=== PATIENT | male | born 1980 | race Caucasian/White ===

== ENCOUNTER 2021-09-26 08:11 | Emergency (ER) | payer OTHER, SELFPAY ==
--- NOTE | ~2021-09-26 | XR_ITS ---
XR shoulder RT min 2V 09/26/2021 08:47 Indication: Right shoulder pain Procedure: 4 views right shoulder Comparison: No prior studies for comparison. Findings: There is a nondisplaced fracture body of the scapula. The acromioclavicular and glenohumera l joints are in anatomic alignment. Proximal humerus is unremarkable. Impression: 1: Nondisplaced right scapular fracture. Reviewed, dictated and finalized at location A. Impression: 1: Nondisplaced right scapular fracture.
[2021-09-26 08:26] VITALS: BP 125/73; PULSE 58; RESP 20; TEMP 36.6; O2SAT 100
--- NOTE | 2021-09-26 09:12 | ED.GENADULT ---
HPI - General Adult General Chief complaint: Extremity Injury, Upper Stated complaint: Injured right shoulder Source: patient Mode of arrival: ambulatory Limitations: no limitations History of Present Illness HPI narrative: Patient presents for evaluation of right shoulder/scapula pain since last night around 1800. He indicates he was wrestling with a friend at which time he was injured. He had his right arm extended with his right hand on his friend's waist. His friend pivoted backward and he felt a pop in his right shoulder. He has noted persistent pain since that time. At rest he has very minimal pain, but when he flexes at the hips or moves his right shoulder he experiences 8 out of 10 pain in the right shoulder/scapula. Pain radiates down through the midshaft of the right humerus. No paresthesias. He is right-hand dominant. He took a dose of aleve last night which seemed to help. She denies any shortness of breath. No additional complaints or concerns. Related Data Allergies Allergy/AdvReac Type Severity Reaction Status Date / Time No Known Allergies Allergy Verified 09/26/21 08:37 Review of Systems Review of Systems: CONSTITUTIONAL: Denies fever, chills, or sweats. EYES: Denies visual changes, redness, or discharge. ENT: Denies rhinorrhea, congestion, sore throat, or otalgia. CARDIOVASCULAR: Denies chest pain, palpitations, or edema. RESPIRATORY: Denies cough or dyspnea. GASTROINTESTINAL: Denies abdominal pain, nausea, vomiting, or diarrhea. GENITOURINARY: Denies dysuria or hematuria. SKIN: Denies rash or itching. MUSCULOSKELETAL: Reports pain in the right shoulder/scapula NEUROLOGIC: Denies headache, numbness, dizziness, or weakness. PSYCHIATRIC: Denies anxiety or depression. [facility] Past Medical History Medical History (Updated 09/26/21 @ 09:33 by Ho Caballero, GE, STEFFI) No pertinent past medical history Surgical History Surgical History No pertinent past surgical history Family History Family History Mother Family history non-contributory Social History Social History Smoking status: Current some day smoker Alcohol intake: current Alcohol use details: Rarely Substance use: never Living arrangements: alone Gender identity (if verbalized by the patient): Male Spiritual care concerns: No Exam Narrative: GENERAL: Well-appearing, well-nourished, and in no acute distress. HEAD: Normocephalic, atraumatic. EYES: PERRLA and EOMI. ENT: Nares clear, no rhinorrhea or epistaxis. Mucous membranes moist. Oropharynx without tonsillar hypertrophy exudate or other lesions. Bilateral TMs pearly marsh nonbulging NECK: Supple. No adenopathy or masses. No carotid bruits or JVD CHEST: Clear to auscultation. No respiratory distress. No wheezes rales or rhonchi HEART: Regular rate and rhythm. No murmur heard. Normal peripheral pulses. ABDOMEN: Soft, nontender, nondistended, normal active bowel sounds. EXTREMITIES: No tenderness in the right shoulder. There is tenderness over the right scapula. Decreased active and passive range of motion of the right shoulder secondary to pain SKIN: Warm, dry, no rash. NEURO: No focal deficits. Alert and oriented x3. PSYCH: Normal mood and affect. Course Course Emergency Course: This is a 40-year-old male that presented with complaints of right shoulder/scapula pain following an injury last night. He had tenderness over the scapula but had no tenderness over the thoracic spine or ribs. He was not short of breath. [facility] to determine whether CT chest was clinically indicated as some scapula fractures do require further workup. Urgent transfer center would not let me speak with a specialist as I am calling from urgent care. I contacted [facility] and ran into the
[2021-09-26] MEDS: KETOROLAC (*BKC) 60 MG/2 ML VIAL IM (09:17)
== END 2021-09-26 09:37 | disposition home or self-care (01) ==
PROVIDERS: Emergency Provider Nurse Practitioner
DX: S42.114A Nondisplaced fracture of body of scapula, right shoulder, initial encounter for closed fracture (principal); X58.XXXA Exposure to other specified factors, initial encounter; Y93.83 Activity, rough housing and horseplay
CPT/HCPCS: 73030; 96372; 99214; A4565; G0463; J1885

== ENCOUNTER 2021-10-25 13:15 | Outpatient (CLI) | payer OTHER, SELFPAY ==
--- NOTE | ~2021-10-25 | XR_ITS ---
EXAM: XR shoulder RT min 2V DATE: 10/25/2021 13:29 HISTORY: f/u rt shoulder . COMPARISON: 09/26/2021. FINDINGS: Normal mineralization. Healing oblique right scapular fracture extending to the lateral brayan rder. No change in alignment. No acute fracture or dislocation. No lytic or blastic lesion. Joint spa aide are maintained. No erosion or periosteal change. Soft tissues within normal limits. IMPRESSION: Healing right scapular fracture. Reviewed, dictated and finalized at location K.
== END 2021-10-25 13:16 | disposition home or self-care (01) ==
PROVIDERS: Visit Provider Orthopaedic Surgery
DX: S42.101D Fracture of unspecified part of scapula, right shoulder, subsequent encounter for fracture with routine healing (principal); M25.511 Pain in right shoulder
CPT/HCPCS: 73030